=== PATIENT | female | born 1965 | race Caucasian/White ===

== ENCOUNTER 2017-10-21 11:27 | Emergency (ER) | payer BC ==
[~2017-10-21] VITALS: Ht 157.5 cm; Wt 60.0 kg
[2017-10-21 11:28] VITALS: BP 137/73; PULSE 74; RESP 16; TEMP 97.4; O2SAT 99
[2017-10-21] MEDS ORDERED: CETIRIZINE HCL 10 MG TAB PO ONE (12:15)
[2017-10-21] MEDS ORDERED: DEXAMETHASONE SOD PHOS 4 MG/ML VIAL IM ONE (12:15)
[2017-10-21] MEDS ORDERED: FAMOTIDINE 20 MG TAB PO ONE (12:15)
--- NOTE | 2017-10-21 12:16 | PD ---
HPI Chief Complaint: Bite or Sting Time Seen by Provider: 11:58 Travel History International Travel<30 days: No Contact w/Intl Traveler<30days: No Traveled to known affect area: No History of Present Illness HPI 52-year-old female with no significant medical history presents emergency department for evaluation of a bite or bee sting to the left dorsal foot. Patient states this happened last night while she was [place] field [place]. She felt it initially. She states that her leg began to burn and sting and then it "gave out on her." She has been ambulatory with mild pain on the lateral aspect of the distal left foot. She states she feels much better today. She assures me that she monitored her respirations and heart rate throughout the night. She denies any focal deficits or weakness. She states that she would like it evaluated prior to him going back to [place] today. [facility] Past Medical History Medical History: Denies Significant Hx Social History Tobacco Use: No Allergies-Medications (Allergen,Severity, Reaction): Coded Allergies: No Known Allergies (Unverified , 10/21/17) Reported Meds & Prescriptions Reported Meds & Active Scripts Active Keflex (Cephalexin) 500 Mg Cap 500 Mg PO Q6H 5 Days Review of Systems Except as stated in HPI: all other systems reviewed are Neg Physical Exam Narrative GENERAL: Well-nourished female patient, ambulatory with a slightly antalgic gait , but in no acute distress. SKIN: Focused skin assessment warm/dry. 5 cm in diameter area of erythema and warmth on the dorsal aspect of the distal left lateral foot. No induration. No fluctuation. At the center of this appears to be a sting or bite corky. No palpable foreign body. HEAD: Atraumatic. Normocephalic. EYES: Pupils equal and round. No scleral icterus. No injection or drainage. ENT: No nasal bleeding or discharge. Mucous membranes pink and moist. NECK: Trachea midline. No JVD. CARDIOVASCULAR: Regular rate and rhythm. No murmur appreciated. RESPIRATORY: No accessory muscle use. Clear to auscultation. Breath sounds equal bilaterally. MUSCULOSKELETAL: No obvious deformities. No clubbing. No cyanosis. Patient has full flexion-extension of all the digits of the affected foot. No deformity. Sensation intact distal affected extremity. NEUROLOGICAL: Awake and alert. No obvious cranial nerve deficits. Motor grossly within normal limits. Normal speech. PSYCHIATRIC: Appropriate mood and affect; insight and judgment normal. Data Data Last Documented VS Vital Signs Date Time Temp Pulse Resp B/P (MAP) Pulse Ox O2 Delivery O2 Flow Rate FiO2 10/21/17 12:52 97.8 78 16 120/77 (91) 99 Orders Orders Dexamethasone Inj (Decadron Inj) (10/21/17 12:15) Famotidine (Pepcid) (10/21/17 12:15) Cetirizine (Zyrtec) (10/21/17 12:15) Ed Discharge Order (10/21/17 12:39) [facility] Medical Decision Making Medical Screen Exam Complete: Yes Emergency Medical Condition: Yes Medical Record Reviewed: Yes Differential Diagnosis Insect bite versus sting versus local reaction versus cellulitis versus foreign body Narrative Course 52-year-old female presents emergency department for evaluation of a bite or sting to the left dorsal foot. Patient appears without distress. She has no focal deficits or weakness. She does have isolated erythema mild edema surrounding what appears to be a sting or bite corky on the left dorsal foot. X- ray imaging is ordered however the patient does not want this to occur at this time. It is counseled. She will be started empirically on oral antibiotics for possible cellulitis. I encouraged follow-up with a primary care provider. She agrees to return immediately with acute worsening symptoms. Diagnosis Primary Impression: Local reaction to insect sting Qualified Codes: T63.481A - Toxic effect of venom of other arthropod, accidental (unintentional), initial encounter Additional Impression: Cellulitis of left foot Referrals: Primary Care Physician Patient Instructions: General Instructions, Insect Bite or Sting (ED) Additional Instructions: Elevate to reduce pain and swelling Epson salt soaks 2-3 times a day Follow-up with primary care provider Ibuprofen as directed on the package as needed for pain Return immediately with acute worsening of symptoms Med/Other Pt SpecificInfo: Prescription(s) given Scripts Cephalexin (Keflex) 500 Mg Cap 500 MG PO Q6H for Infection for 5 Days, #20 CAP 0 Refills Prov: Dottie Hammertobin QUINN 10/21/17 Disposition: 01 DISCHARGE HOME Condition: Stable Gail Hmamer October 21, 2017 12:16
[2017-10-21] MEDS ORDERED: CEPH-460 PO (12:42)
[2017-10-21 12:52] VITALS: BP 120/77; TEMP 97.8
== END 2017-10-21 12:52 | disposition home or self-care (01) ==
LOC: NEPE 11:27
DX: T63.481A Toxic effect of venom of other arthropod, accidental (unintentional), initial encounter (principal); L03.116 Cellulitis of left lower limb
CPT/HCPCS: 96372; 99283; J1100